=== PATIENT | female | born 1940 | race Caucasian/White ===

== ENCOUNTER → 2021-07-09 | Outpatient (CLI) | payer MEDICARE ==
[~2021-07-09] MED LIST: ASCO100T4 PO; ASPI-482 PO; CYAN100031 PO; KRIL500C PO; PRAV20TA2 PO; UBID50TA PO; ZINC50TA39 PO
--- NOTE | 2021-07-09 16:05 | CARD ---
MR#: [id number] Date of Study: 07/09/2021 Ordering Physician: SUSY RENEE, Referring Physician: SUSY RENEE, Tech: Marisol Lawler [facility] APPROVED REPORT EXAM: Two-dimensional and M-mode echocardiogram with Doppler and color Doppler. Other Information Quality : GoodHR: 83bpm INDICATION Arrhythmia Sick Sinus Syndrome Surgery/Intervention Pacemaker: Date: 2013 RISK FACTORS Hyperlipidemia 2D DIMENSIONS RVDd3.7 (2.9-3.5cm)Left Atrium(2D)2.6 (1.6-4.0cm) IVSd0.9 (0.7-1.1cm)Aortic Root(2D)2.8 (2.0-3.7cm) LVDd4.2 (3.9-5.9cm)LVOT Diameter2.0 (1.8-2.4cm) PWd0.8 (0.7-1.1cm)LVDs2.7 (2.5-4.0cm) FS (%) 35.0 %SV50.8 ml LVEF(%)64.7 (>50%) Aortic Valve AoV Peak Ritesh.138.3cm/sAoV VTI26.5cm AO Peak GR.7.6mmHgLVOT Peak Ritesh.116.1cm/s LVOT VTI 24.65cmAO Mean GR.4mmHg JONATAHN (VMAX)2.33uk9VPP (VTI)2.98cm2 Mitral Valve MV E Jcgpmkem59.7cm/sMV DECEL YEDM395yn MV A Kdzlmjnx89.1cm/sMV E Mean Gr.2mmHg MV ISC91ilK/A Ratio0.7 MVA (PHT)3.81cm2 TDI E/Lateral E'7.4E/Medial E'9.5 Pulmonary Valve PV Peak Rcqjemjm43.4cm/sPV Peak Grad.3mmHg Tricuspid Valve TR P. Yynaimco487bj/sRAP YRZZTMZZ5ftOk TR Peak Gr.26kqEzTOFI93eoKa Pulmonary Vein S1 Lrradqyv28.5cm/sD2 Dkspkwbc83.1cm/s PVa ukrwixot78cxzl LEFT VENTRICLE The left ventricle is normal size. There is normal left ventricular wall thickness. The left ventricu lar systolic function is normal and the ejection fraction is within normal range. The Ejection Fracti on is 55%. There is normal LV segmental wall motion. Transmitral Doppler flow pattern is Grade I-abno rmal relaxation pattern. RIGHT VENTRICLE The right ventricle is normal size. There is normal right ventricular wall thickness. The right ventr icular systolic function is normal. There is a pacemaker/ICD lead in the RA/RV. ATRIA The left atrium size is normal. The right atrium size is normal. The interatrial septum is intact wit h no evidence for an atrial septal defect or patent foramen ovale as noted on 2-D or Doppler imaging. AORTIC VALVE The aortic valve is normal in structure and function. Doppler and Color Flow revealed no significant aortic regurgitation. There is no significant aortic valvular stenosis. Calculated aortic valve area is 2.89 cm2 with maximum pressure gradient of 10 mmHg and mean pressure gradient of 5 mmHg. MITRAL VALVE The mitral valve is normal in structure and function. There is no evidence of mitral valve prolapse. There is no mitral valve stenosis. Doppler and Color Flow revealed no mitral valve regurgitation note d. TRICUSPID VALVE The tricuspid valve is normal in structure and function. Doppler and Color Flow revealed trace tricus pid regurgitation with an estimated PAP of 31 mmHg. There is no tricuspid valve stenosis. PULMONIC VALVE The pulmonic valve is not well visualized. Doppler and Color Flow revealed trace pulmonic valvular re gurgitation. There is no pulmonic valvular stenosis. GREAT VESSELS The aortic root is normal in size. The IVC is normal in size and collapses >50% with inspiration. PERICARDIAL EFFUSION There is no evidence of significant pericardial effusion. Critical Notification Critical Value: No <Conclusion> The left ventricular systolic function is normal and the ejection fraction is within normal range. Th e Ejection Fraction is 55%. There is normal LV segmental wall motion. There is a pacemaker/ICD lead in the RA/RV. Signed by : Elijah Chiang, Electronically Approved : 07/09/2021 16:04:58
== END ==
LOC: ECHO 13:15
PROVIDERS: ATTEND Internal Medicine Cardiovascular Disease
DX: I49.5 Sick sinus syndrome (principal); I49.9 Cardiac arrhythmia, unspecified; Z95.0 Presence of cardiac pacemaker
CPT/HCPCS: 93306